=== PATIENT | female | born 1945 | race Caucasian/White ===

== ENCOUNTER 2018-12-14 11:29 | Day surgery (SDC) | payer MEDICARE, BC ==
[2018-12-13 12:47] VITALS: BMI 25.0
[2018-12-14] MEDS ORDERED: Fentanyl 100 MCG/2 ML VIAL ONE (12:14)
--- NOTE | 2018-12-14 15:24 | RAD ---
LEFT WRIST: 12/14/18 Three views. INDICATIONS: Open reduction internal fixation left distal radius. FINDINGS/IMPRESSION: Three fluoroscopic images from OR are presented. These images demonstrate plate and screws transfixin g the distal radius. POS: YOHANA
[2018-12-14] MEDS ORDERED: Bupivacaine HCl 0.5%/Epinephrine 1:200,000/PF 30 ml Vial ONE (16:01)
[2018-12-14] MEDS ORDERED: Lidocaine 1% PF 5 ML VIAL ONE (16:12)
[2018-12-14] MEDS ORDERED: PROPOFOL 200 MG/20 ML VIAL ONE (16:12)
[2018-12-14] MEDS ORDERED: ePHEDrine 50 MG/ML VIAL ONE (16:12)
--- NOTE | 2018-12-14 21:24 | OP ---
DATE OF PROCEDURE: 12/14/2018 PREOPERATIVE DIAGNOSIS: Closed distal radius fracture, comminuted (greater than 3 fragments), intra-articular, left. POSTOPERATIVE DIAGNOSIS: Closed distal radius fracture, comminuted (greater than 3 fragments), intra-articular, left. PROCEDURE PERFORMED: Open reduction and internal fixation of left distal radius. ANESTHESIA: General. M[employer] HOUSE TENDER: Onofre Zapata PA-C TOURNIQUET TIME: Approximately 40 minutes at 250 mmHg. IMPLANTS: Synthes 2.4 mm variable angle LCP 2-column distal radial plate, 3-hole. COMPLICATIONS: None. DRAINS: None. SPECIMEN: None. OUTCOME: Near-anatomic alignment. INDICATIONS FOR PROCEDURE: The patient is a 73-year-old lady, status post fall on outstretched hand, sustaining a very displaced and comminuted distal radius fracture. Her initial films show approximately 50 degrees of dorsal angulation with comminution at the fracture site. Given this displacement, I have discussed with the patient and her treatment options including nonsurgical management versus closed reduction and pin fixation versus open reduction and internal fixation. At this time, we are going to proceed to the operating room for a reduction and depending upon stability, either pinning or open reduction and internal fixation. Informed consent has been obtained. I believe all questions have been answered. Risks and benefits were discussed. Risks include, but are not limited to bleeding, infection, nerve injury, DVT, PE, wrist stiffness, wrist pain, loss of limb or life. The patient appears to understand. DESCRIPTION OF PROCEDURE: The patient was brought to the operating room and a time-out performed followed by induction of general anesthesia. Next, a closed reduction maneuver was performed of the distal radius and near anatomic alignment was achieved, but the fracture was found to be grossly unstable. As such, a sterile prep and drape was then performed of the left upper extremity. The limb was exsanguinated with Esmarch bandage, tourniquet inflated to 250 mmHg. Next, a volar radial skin incision was made exposing the distal radius. Once exposed, the fracture was reduced; however, found to be grossly unstable and as such, a 3-hole 2.4 mm variable angle LCP 2-column distal radial plate was applied to the distal radius and held in place with a 2.7-mm screw in the slotted hole proximal to the fracture. Once positioned, the fracture was reduced to this plate shaft construct getting near-anatomic alignment as checked on both AP and lateral C-arm images. Once achieved, a total of four 2.4 mm locking screws were passed through the horizontal limb of the plate capturing the distal fragment. Two additional 2.7 mm screws were then placed proximally. At the completion of this, AP and lateral images showed near-anatomic alignment of the fracture with appropriately positioned hardware. The wound was then irrigated with normal saline and closed in layers with Vicryl deep followed by nylon for the skin. A Xeroform gauze and fiberglass splint were applied to the wrist. Tourniquet was let down at the completion of dressing. The patient was transferred to recovery room in stable condition. There were no complications. She tolerated the procedure well. Job ID: [id number]
== END 2018-12-14 17:25 | disposition home or self-care (01) ==
LOC: SDC 11:29
PROVIDERS: ATTEND Orthopaedic Surgery
PROC: 0PSJ04Z Reposition Left Radius with Internal Fixation Device, Open Approach (ICD-10-PCS; principal; 2018-12-14)
PROC: 3E0T3BZ Introduction of Anesthetic Agent into Peripheral Nerves and Plexi, Percutaneous Approach (ICD-10-PCS; 2018-12-14)
DX: S52.572A Other intraarticular fracture of lower end of left radius, initial encounter for closed fracture (principal); G89.18 Other acute postprocedural pain
CPT/HCPCS: 76000; C1713; J0670; J0690; J2001; J2704; J3010; J3490